=== PATIENT | female | born 1965 | race Caucasian/White ===

== ENCOUNTER → 2016-08-29 | Outpatient (CLI) | payer OTHER | LOC: WHI 15:39 | PROVIDERS: ATTEND Family Medicine | DX: Z12.31 Encounter for screening mammogram for malignant neoplasm of breast (principal); Z98.82 Breast implant status | CPT/HCPCS: 77067; G0202 ==

== ENCOUNTER → 2017-11-25 | Outpatient (CLI) | payer OTHER ==
--- NOTE | 2017-11-25 16:10 | WOMENS IMAGING REPORT ---
EXAM DESCRIPTION: BILAT SCREENING MAMMO W/CAD COMPLETED DATE/TIME: 11/25/2017 3:50 pm REASON FOR STUDY: ROUTINE SCREENING;Z12.31 Z12.31 ENCNTR SCREEN MAMMOGRAM FOR MALIGNANT NEOPLASM OF ALFREDO COMPARISON: [id number] TECHNIQUE: Standard craniocaudal and mediolateral oblique views of each breast recorded using digita l acquisition. Additional "push-back" craniocaudal and mediolateral oblique images acquired. LIMITATIONS: None. FINDINGS: IMPLANTS: Bilateral subpectoral implants. Findings present which are benign by mammographic criteria. No suspicious masses, calcifications or architectural distortion. Read with the assistance of CAD. .[facility] - R2 Cenova Version 1.3 .[facility] - R2 Cenova Version 1.3 .[facility] - R2 Cenova Version 2.4 .[facility] - R2 Cenova Version 2.4 .[facility] - R2 [employer] Version 9.2 Benign mammographic findings may include one or more of the following: Smooth masses, popcorn/rim/co arse calcifications, asymmetries, post-procedure changes, and lesions with long-standing stability. IMPRESSION: BENIGN MAMMOGRAPHIC FINDINGS. BIRADS 2 BREAST DENSITY: b. There are scattered areas of fibroglandular density. BIRAD: 2 BENIGN FINDING(S) RECOMMENDATION: ROUTINE SCREENING COMMENT: The patient has been notified of the results by letter per SA requirements. Additional no tification policies are in place for contacting patient with suspicious or incomplete findings. Quality ID #[id number]: [employer] [place] [employer] recommends an annual screening mammogram for women aged 40 years or over. This facility utilizes a reminder system to ensure that all patients receive reminder letters, and/or direct phone calls for appointments. This includes reminders for routine scr eening mammograms, diagnostic mammograms, or other Breast Imaging Interventions when appropriate. Th is patient will be placed in the appropriate reminder system. [employer] [place] [employer] (ACR) has developed recommendations for screening MRI of the breast s in certain patient populations, to be used in conjunction with mammography. Breast MRI surveillanc e may be appropriate for women with more than 20% lifetime risk of developing breast cancer as deter mined by genetic testing, significant family history of the disease, or history of mantle radiation f or Hodgkins Disease. ACR Practice Guidelines 2008. TECHNICAL DOCUMENTATION: FINDING NUMBER: (1) ASSESSMENT: (1) JOB ID: [id number] [employer]- All Rights Reserved Reading location - IP/workstation name: [email or web address]
== END ==
LOC: WI 15:23
PROVIDERS: ATTEND Family Medicine
DX: Z12.31 Encounter for screening mammogram for malignant neoplasm of breast (principal)
CPT/HCPCS: 77067

== ENCOUNTER 2018-10-13 09:13 | Observation (INO) | payer OTHER ==
--- NOTE | 2018-10-13 10:07 | ER Document Report ---
ED Medical Screen (RME) - General Chief Complaint: Dizziness Stated Complaint: DIZZINESS Time Seen by Provider: 10/13/18 09:56 Primary Care Provider: ANABEL MONDRAGON MD [Primary Care Provider] - Follow up as needed Notes: Patient is a 53-year-old female that presents to the emergency department for chief complaint of near syncope, lightheadedness and nausea. Patient states that while she was at work this morning, she started feeling lightheaded, and had heaviness across her chest, with associated nausea but no vomiting. She states she was out of her Lexapro for approximately 2 weeks, but just restarted today, is not sure if that is part of it, she also reports that her father had an TN at the age of 40.. ROS: Other than noted above, the 12 point review of systems was reviewed with the patient and were negative, all pertinent findings are included in the HPI. PHYSICAL EXAMINATION: Vital signs reviewed. GENERAL: Well-appearing, well-nourished and in no acute distress. HEAD: Atraumatic, normocephalic. EYES: Pupils equal round extraocular movements intact, conjunctiva are normal. ENT: Nares patent NECK: Normal range of motion CV: Heart regular rate and rhythm LUNGS: No respiratory distress Musculoskeletal: Normal range of motion NEUROLOGICAL: Normal speech PSYCH: Normal mood, normal affect. MDM: Patient seen and examined for rapid initial assessment. Vital signs reviewed. A comprehensive ED assessment and evaluation of the patient, analysis of test results and completion of the medical decision making process will be conducted by additional ED providers. *Note is created using voice recognition software and may contain spelling, syntax or grammatical errors. TRAVEL OUTSIDE OF THE [place] IN LAST 30 DAYS: No - Related Data Allergies/Adverse Reactions: lisinopril Allergy (Verified 10/13/18 09:27) sulfamethoxazole [From Bactrim] Allergy (Verified 10/13/18 09:27) trimethoprim [From Bactrim] Allergy (Verified 10/13/18 09:27) Past Medical History - Social History Chew tobacco use (# tins/day): No Frequency of alcohol use: Social Drug Abuse: None - Past Medical History Cardiac Medical History: Reports: Hx Hypertension Renal/ Medical History: Denies: Hx Peritoneal Dialysis Physical Exam - Vital signs Vitals: Temp Pulse Resp BP Pulse Ox 98.0 F 83 16 133/71 H 100 10/13/18 09:28 10/13/18 09:28 10/13/18 09:28 10/13/18 09:28 10/13/18 09:28 Course - Vital Signs Vital signs: Temp Pulse Resp BP Pulse Ox 98.0 F 83 16 133/71 H 100 10/13/18 09:28 10/13/18 09:59 10/13/18 09:59 10/13/18 09:59 10/13/18 09:59 Doctor's Discharge - Discharge Referrals: ANABEL MONDRAGON MD [Primary Care Provider] - Follow up as needed
[2018-10-13] MEDS ORDERED: ONDANSETRON HCL INJ/PF 4 MG/2 ML SDV IV ONE (10:08)
[2018-10-13 10:41] LABS: ABSOLUTE LYMPHOCYTES (AUTO) 1.3 10^3/uL (0.5-4.7); ABSOLUTE MONOCYTES (AUTO) 0.5 10^3/uL (0.1-1.4); ABSOLUTE NEUT (AUTO) 9.1 10^3/uL (1.7-8.2); BASOPHILS % (AUTO) 0.2 % (0-2); EOSINOPHILS % (AUTO) 0.3 % (0-6); HEMATOCRIT 39.7 % (36.0-47.0); HEMOGLOBIN 13.7 g/dL (12.0-15.5); LYMPHOCYTES % (AUTO) 11.6 % (13-45); MEAN CORPUSCULAR HEMOGLOBIN 31.5 pg (27.0-33.4); MEAN CORPUSCULAR HGB CONC 34.4 g/dL (32.0-36.0); MEAN CORPUSCULAR VOLUME 91 fl (80-97); MONOCYTES % (AUTO) 4.7 % (3-13); PLATELET COUNT 258 10^3/uL (150-450); RED BLOOD COUNT 4.34 10^6/uL (3.72-5.28); RED CELL DISTRIBUTION WIDTH 13.9 % (11.5-14.0); SEGMENTED NEUTROPHILS % (AUTO) 83.2 % (42-78); TOTAL CELLS COUNTED % (AUTO) 100 %; WHITE BLOOD COUNT 10.9 10^3/uL (4.0-10.5)
--- NOTE | 2018-10-13 10:49 | RADIOLOGY REPORT (SQ) ---
EXAM DESCRIPTION: CHEST SINGLE VIEW COMPLETED DATE/TIME: 10/13/2018 10:45 am REASON FOR STUDY: chest pain, near syncope COMPARISON: None. EXAM PARAMETERS: NUMBER OF VIEWS: One view. TECHNIQUE: Single frontal radiographic view of the chest acquired. RADIATION DOSE: NA LIMITATIONS: None. FINDINGS: LUNGS AND PLEURA: No opacities, masses or pneumothorax. No pleural effusion. MEDIASTINUM AND HILAR STRUCTURES: No masses. Contour normal. HEART AND VASCULAR STRUCTURES: Heart normal in size. Normal vasculature. BONES: No acute findings. HARDWARE: None in the chest. OTHER: No other significant finding. IMPRESSION: NO ACUTE RADIOGRAPHIC FINDING IN THE CHEST. TECHNICAL DOCUMENTATION: JOB ID: [id number] [employer]- All Rights Reserved Reading location - IP/workstation name: [email or web address]
[2018-10-13 10:59] LABS: ALANINE AMINOTRANSFERASE 16 U/L (9-52); ALBUMIN 4.2 g/dL (3.5-5.0); ALKALINE PHOSPHATASE 58 U/L (38-126); ANION GAP 12 (5-19); ASPARTATE AMINO TRANSFERASE 19 U/L (14-36); BILIRUBIN,DIRECT 0.2 mg/dL (0.0-0.4); BILIRUBIN,TOTAL 0.6 mg/dL (0.2-1.3); BLOOD UREA NITROGEN 16 mg/dL (7-20); CALCIUM 10.1 mg/dL (8.4-10.2); CARBON DIOXIDE 27 mmol/L (22-30); CHLORIDE 99 mmol/L (98-107); GLUCOSE 86 mg/dL (75-110); POTASSIUM 3.8 mmol/L (3.6-5.0); SODIUM 137.6 mmol/L (137-145); TOTAL PROTEIN 7.1 g/dL (6.3-8.2)
--- NOTE | 2018-10-13 11:12 | ER Document Report ---
ED General - General Chief Complaint: Dizziness Stated Complaint: DIZZINESS Time Seen by Provider: 10/13/18 09:56 Primary Care Provider: ANABEL MONDRAGON MD [Primary Care Provider] - Follow up as needed Notes: Patient says that she began experiencing some nausea yesterday and a "bubble" or "air or gas" in the anterior substernal chest region between the breasts. The symptom comes and goes. Prior to the onset of her symptoms, she had seen her primary care provider for a routine visit at about 7:00 AM yesterday. This morning, on her way to work, she went back to his office to get some blood work done, but did not see the doctor there. 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 While there, she began to feel hot and sweaty and felt as if she was going to pass out and laid down on the floor. She never actually completely lost consciousness. Did not have any vomiting. Did not feel any shortness of breath. Has not been sick recently. No fevers. Has a slight headache. Patient has no history of any heart condition. Does have hypertension. Patient has a history of anxiety and has been out of her Lexapro for a couple of weeks, but just resumed taking it. TRAVEL OUTSIDE OF THE [place] IN LAST 30 DAYS: No - Related Data Allergies/Adverse Reactions: lisinopril Allergy (Verified 10/13/18 09:27) sulfamethoxazole [From Bactrim] Allergy (Verified 10/13/18 09:27) trimethoprim [From Bactrim] Allergy (Verified 10/13/18 09:27) Past Medical History - Social History Smoking Status: Never Smoker Chew tobacco use (# tins/day): No Frequency of alcohol use: Social Drug Abuse: None Family History: Reviewed & Not Pertinent, CAD - Father had a heart attack at the age of 40. Patient has suicidal ideation: No Patient has homicidal ideation: No - Past Medical History Cardiac Medical History: Reports: Hx Hypertension Endocrine Medical History: Denies: Hx Diabetes Mellitus Type 1, Hx Diabetes Mellitus Type 2 GI Medical History: Reports: Hx Gastroesophageal Reflux Disease Psychiatric Medical History: Reports: Hx Anxiety Past Surgical History: Reports: Other - Augmentation mammoplasty Review of Systems - Review of Systems Notes: REVIEW OF SYSTEMS: CONSTITUTIONAL : Denies fever. EENT: Denies eye, ear, nose or mouth or throat pain or other symptoms. CARDIOVASCULAR: See HPI. Denies actual chest pain. Denies any swelling or pain of either lower leg. RESPIRATORY: Denies cough, chest congestion, or shortness of breath. No chest wall or sternal tenderness to press. GASTROINTESTINAL: Nausea. See HPI. GENITOURINARY: Denies difficulty or painful urinating, urinary frequency, blood in urine. MUSCULOSKELETAL: Denies back or neck pain. Denies joint pain or swelling. Negative Homans bilaterally. SKIN: Denies rash or skin lesions. NEUROLOGICAL: Sounds like patient had a near syncopal episode this morning. See HPI. Denies LOC or altered mental status. Denies headache. Denies sensory loss or motor deficits. ALL OTHER SYSTEMS REVIEWED AND NEGATIVE. Physical Exam - Vital signs Vitals: Temp Pulse Resp BP Pulse Ox 98.0 F 83 16 133/71 H 100 10/13/18 09:28 10/13/18 09:28 10/13/18 09:28 10/13/18 09:28 10/13/18 09:28 - Notes Notes: PHYSICAL EXAMINATION: GENERAL: Well-appearing, in no acute distress. Anxious. HEAD: Atraumatic, normocephalic. EYES: Pupils equal round and reactive to light, extraocular movements intact. ENT: oropharynx clear without exudates. Moist mucous membranes. NECK: Normal range of motion, supple. No carotid bruits heard. LUNGS: Breath sounds clear and equal bilaterally. No chest wall tenderness. HEART: Regular rate and rhythm without murmurs. ABDOMEN: Soft, nontender. No guarding or rebound. No masses. BACK: No tenderness throughout entire back. EXTREMITIES: Normal range of motion without pain. Negative Homans bilaterally. NEUROLOGICAL: Normal speech, normal gait. Normal sensory, motor, and reflex exams. Awake, alert, and oriented x3. Cranial nerves normal. PSYCH: Normal mood, normal affect. SKIN: Warm, dry, no rashes. Course - Re-evaluation Re-evalutation: 10/13/18 12:12 Patient's complete workup is negative. However, I am concerned about her near syncopal episode. Also concerned as to the source for her chest discomfort. Feel like the patient should have at least a 24-hour monitoring and further evaluation. - Vital Signs Vital signs: Temp Pulse Resp BP Pulse Ox 98.0 F 83 16 133/71 H 100 10/13/18 09:28 10/13/18 09:59 10/13/18 09:59 10/13/18 09:59 10/13/18 10:35 - Laboratory Result Diagrams: 10/13/18 10:15 10/13/18 10:15 Laboratory results interpreted by me: 10/13/18 10:15 WBC 10.9 H Seg Neutrophils % 83.2 H Lymphocytes % 11.6 L Absolute Neutrophils 9.1 H - Diagnostic Test Radiology results interpreted by me: 10/13/18 11:30 Chest x-ray is normal. - EKG Interpretation by Fl EKG shows normal: Sinus rhythm Rate: Normal Rhythm: NSR Additional EKG results interpreted by me: 10/13/18 11:31 EKG is completely normal. Discharge - Discharge Clinical Impression: Chest pain, Near syncope Condition: Stable Disposition: ADMITTED OBSERVATION Admitting Provider: Hospitalist Unit Admitted: Telemetry Referrals: ANABEL MONDRAGON MD [Primary Care Provider] - Follow up as needed
[2018-10-13] MEDS ORDERED: ONDANSETRON HCL INJ/PF 4 MG/2 ML SDV IV PRN (13:55)
[2018-10-13] MEDS ORDERED: MAG HYDROX/AL HYDROX/SIMETH SUSP 30 ML UDCUP PO PRN (13:55)
[2018-10-13] MEDS ORDERED: ACETAMINOPHEN 325 MG TABLET PO PRN (13:55)
[2018-10-13] MEDS ORDERED: LIDOCAINE 2% VISCOUS SOLN 20 ML UDCUP PO ONE (14:30)
[2018-10-13] MEDS ORDERED: MAG HYDROX/AL HYDROX/SIMETH SUSP 30 ML UDCUP PO ONE (14:30)
[2018-10-13] MEDS ORDERED: METOCLOPRAMIDE HCL ORAL SOLN 10 MG/10 ML UDCUP PO ONE (14:30)
[2018-10-13] MEDS: HEPARIN SOD (PORCINE) 5,000 UNIT/ML 1 ML SYRINGE SUBCUT SCH ×2 (14:58→22:02)
--- NOTE | 2018-10-13 18:28 | PDOC H&P ---
History of Present Illness Admission Date/PCP: 10/13/18 12:52 ANABEL MONDRAGON MD Patient complains of: Chest pain History of Present Illness: RAYMOND NGO is a 53 year old female with a past medical history significant for hypertension, GERD, depression/anxiety, and overactive bladder who presented to the emergency department today with a complaint of 1 day of atypical chest pain, described as a substernal "pressure bubble," that is nonradiating and without alleviating or exacerbating factors. In fact, the patient's chest pain did not worsen yesterday while at the gym (reportedly ran 2 miles on treadmill). However, today while on the commode attempting to have a BM, the patient became diaphoretic and experienced near syncope upon standing. Evaluation in the emergency department was unremarkable with normal vital signs, reassuring EKG, benign CXR, normal troponin and laboratory evaluation. Patient's HEART score is 2 (age, PMH of HTN, and Family Hx). She was educated that she could be safely discharged to home following her second troponin with outpatient follow up. The patient expressed severe reservations with this plan and insisted on observation overnight with stress testing in the morning. She is referred to the hospitalist service for admission and chest pain rule out. Past Medical History Cardiac Medical History: Reports: Hypertension Denies: Coronary Artery Disease, Myocardial Infarction, Hyperlipidema Pulmonary Medical History: Reports: None EENT Medical History: Reports: None Neurological Medical History: Reports: None Endocrine Medical History: Reports: None Renal/ Medical History: Reports: None Malignancy Medical History: Reports: None GI Medical History: Reports: Gastroesophageal Reflux Disease Musculoskeltal Medical History: Reports: None Skin Medical History: Reports: None Psychiatric Medical History: Reports: Depression, General Anxiety Disorder Traumatic Medical History: Reports: None Hematology: Reports: None Infectious Medical History: Reports: None Past Surgical History Past Surgical History: Reports: Other - Augmentation mammoplasty Social History Information Source: Patient Smoking Status: Current Some Day Smoker Frequency of Alcohol Use: Social Hx Recreational Drug Use: No Drugs: None Hx Prescription Drug Abuse: No - Advance Directive Resuscitation Status: Full Code Family History Family History: Reviewed & Not Pertinent, CAD - Father had a heart attack at the age of 40., DM Parental Family History Reviewed: Yes Children Family History Reviewed: Yes Sibling(s) Family History Reviewed.: Yes Medication/Allergy Home Medications: Escitalopram Oxalate [Lexapro] 20 mg PO DAILY 10/13/18 Losartan/Hydrochlorothiazide [Hyzaar 50-12.5 Tablet] 1 tab PO DAILY 10/13/18 Omeprazole 40 mg PO DAILY 10/13/18 Tolterodine Tartrate [Detrol LA] 4 mg PO DAILY 10/13/18 Allergies/Adverse Reactions: lisinopril Allergy (Verified 10/13/18 09:27) sulfamethoxazole [From Bactrim] Allergy (Verified 10/13/18 09:27) trimethoprim [From Bactrim] Allergy (Verified 10/13/18 09:27) Review of Systems Constitutional: ABSENT: chills, fever(s), headache(s), weight gain, weight loss Eyes: ABSENT: visual disturbances Ears: ABSENT: hearing changes Cardiovascular: PRESENT: chest pain. ABSENT: dyspnea on exertion, edema, orthropnea, palpitations Respiratory: ABSENT: cough, hemoptysis Gastrointestinal: ABSENT: abdominal pain, constipation, diarrhea, hematemesis, hematochezia, nausea, vomiting Genitourinary: ABSENT: dysuria, hematuria Musculoskeletal: ABSENT: joint swelling Integumentary: ABSENT: rash, wounds Neurological: ABSENT: abnormal gait, abnormal speech, confusion, dizziness, focal weakness, syncope Psychiatric: ABSENT: anxiety, depression, homidical ideation, suicidal ideation Endocrine: ABSENT: cold intolerance, heat intolerance, polydipsia, polyuria Hematologic/Lymphatic: ABSENT: easy bleeding, easy bruising Physical Exam Vital Signs: Temp Pulse Resp BP Pulse Ox 98.3 F 80 15 114/70 99 10/13/18 16:47 10/13/18 16:47 10/13/18 16:47 10/13/18 16:47 10/13/18 16:47 Intake & Output 10/12/18 10/13/18 10/14/18 06:59 06:59 06:59 Weight 63 kg General appearance: PRESENT: no acute distress, well-developed, well-nourished Head exam: PRESENT: atraumatic, normocephalic Eye exam: PRESENT: conjunctiva pink, EOMI, PERRLA. ABSENT: scleral icterus Ear exam: PRESENT: normal external ear exam Mouth exam: PRESENT: moist, tongue midline Neck exam: ABSENT: carotid bruit, JVD, lymphadenopathy, thyromegaly Respiratory exam: PRESENT: clear to auscultation fuentes. ABSENT: rales, rhonchi, wheezes Cardiovascular exam: PRESENT: RRR. ABSENT: diastolic murmur, rubs, systolic murmur Pulses: PRESENT: normal dorsalis pedis pul Vascular exam: PRESENT: normal capillary refill GI/Abdominal exam: PRESENT: normal bowel sounds, soft. ABSENT: distended, guarding, mass, organolmegaly, rebound, tenderness Rectal exam: PRESENT: deferred Extremities exam: PRESENT: full ROM. ABSENT: calf tenderness, clubbing, pedal edema Neurological exam: PRESENT: alert, awake, oriented to person, oriented to place, oriented to time, oriented to situation, CN II-XII grossly intact. ABSENT: motor sensory deficit Psychiatric exam: PRESENT: appropriate affect, normal mood. ABSENT: homicidal ideation, suicidal ideation Skin exam: PRESENT: dry, intact, warm. ABSENT: cyanosis, rash Results Laboratory Results: 10/13/18 10:15 10/13/18 10:15 10/13/18 10/13/18 10:15 10:15 WBC 10.9 H RBC 4.34 Hgb 13.7 Hct 39.7 MCV 91 MCH 31.5 MCHC 34.4 RDW 13.9 Plt Count 258 Seg Neutrophils % 83.2 H Lymphocytes % 11.6 L Monocytes % 4.7 Eosinophils % 0.3 Basophils % 0.2 Absolute Neutrophils 9.1 H Absolute Lymphocytes 1.3 Absolute Monocytes 0.5 Absolute Eosinophils 0.0 Absolute Basophils 0.0 Sodium 137.6 Potassium 3.8 Chloride 99 Carbon Dioxide 27 Anion Gap 12 BUN 16 Creatinine 0.68 Est GFR ( Amer) > 60 Est GFR (Non-Af Amer) > 60 Glucose 86 Calcium 10.1 Total Bilirubin 0.6 AST 19 ALT 16 Alkaline Phosphatase 58 Total Protein 7.1 Albumin 4.2 10/13/18 10/13/18 10:15 15:15 Troponin I < 0.012 < 0.012 Impressions: Chest X-Ray 10/13/18 10:07 IMPRESSION: NO ACUTE RADIOGRAPHIC FINDING IN THE CHEST. Assessment and Plan - Diagnosis (1) Atypical chest pain Is this a current diagnosis for this admission?: Yes Plan: Chest x-ray is benign. EKG demonstrates NSR without ST segment changes. Initial troponin is negative. The patient is admitted to the medical floor and continuous cardiac telemetry. We will continue to monitor cardiac enzymes. Treadmill stress test in the morning. Trial of GI cocktail. Cardiac diet. Daily aspirin and statin therapy. A1c, lipid panel, TSH with a.m. labs. (2) HTN (hypertension) Is this a current diagnosis for this admission?: Yes Plan: Continue home dose losartan/HCTZ Cardiac diet. (3) GERD (gastroesophageal reflux disease) Is this a current diagnosis for this admission?: Yes Plan: Continue PPI. (4) Anxiety Is this a current diagnosis for this admission?: Yes Plan: Continue home dose Lexapro. (5) Near syncope Is this a current diagnosis for this admission?: Yes Plan: Likely vasovagal as symptoms occurred while on the commode attempting to have a BM (patient reports that she has significant difficulty with constipation). Chest x-ray and EKG are benign. Chemistry is entirely within normal limits. Troponins are negative x2. Fall precautions. Orthostatic blood pressures. - Time Time Spent with patient: 35 or more minutes Smoking Cessation Education: 3 to 10 minutes Medications reviewed and adjusted accordingly: Yes Anticipated discharge: Home Within: within 24 hours
--- NOTE | 2018-10-13 21:52 | EKG REPORT ---
SEVERITY:- NORMAL ECG - SINUS RHYTHM : Confirmed by: Suzette Andrew MD 13-Oct-2018 21:52:29
[2018-10-13] MEDS: FAMOTIDINE 20 MG TABLET PO SCH (21:55)
[2018-10-13] MEDS ORDERED: ATORVASTATIN CALCIUM 10 MG TABLET PO SCH (22:00)
[2018-10-13] MEDS ORDERED: ESCITALOPRAM OXALATE 10 MG TABLET PO SCH (22:00)
[2018-10-14] MEDS: HEPARIN SOD (PORCINE) 5,000 UNIT/ML 1 ML SYRINGE SUBCUT SCH (05:59)
[2018-10-14] MEDS ORDERED: ESCITALOPRAM OXALATE 10 MG TABLET PO SCH (08:00)
[2018-10-14 08:10] LABS: CHOLESTEROL 132.46 mg/dL (0-200); TRIGLYCERIDES 76 mg/dL (<150)
[2018-10-14 08:21] LABS: DIRECT LDL 68 mg/dL (<100)
[2018-10-14] MEDS ORDERED: (PENDING PHARMACY ID) (Losartan/Hydrochlorothiazide [Hyzaar 50-12.5 Tablet] 1 TAB) PO SCH (10:00)
[2018-10-14] MEDS ORDERED: HYDROCHLOROTHIAZIDE 12.5 MG TABLET PO SCH (10:00)
[2018-10-14] MEDS ORDERED: LOSARTAN POTASSIUM 50 MG TABLET PO SCH (10:00)
[2018-10-14] MEDS ORDERED: ASPIRIN 81 MG TABLET, ENT COATED PO SCH (10:00)
[2018-10-14] MEDS: FAMOTIDINE 20 MG TABLET PO SCH (11:24)
[2018-10-14 12:43] VITALS: BP 108/74
--- NOTE | 2018-10-17 17:01 | DRAGON STRESS TEST REPORT ---
Exercise EKG treadmill stress test. Data procedure: 10/14/2018. Ordering Provider: Ms. Maria R Maguire NP. The patient Status: In Patient. Indication: Chest pain/discomfort . Coronary risk factors:. Age, hyperlipidemia, and family history of coronary artery disease. Significant physical findings prior to stress testing show a blood pressure of 129/97 and a heart rate of 81 beat per minute. Auscultation of the heart shows normal S1 and S2.NoS3 or S4 gallops. Systolic murmur in the left sternal border and apex. Lungs are clear to auscultation and percussion. Resting 12-lead EKG: Sinus Rhythm. Within Normal Limits.. Procedure: The patient was excised on a standard Skip protocol. . The patient walked a total of 10 minutes and 45 seconds on this protocol and reached a peak heart rate of 171 beats per minute, which is 101% of maximum predicted heart rate for age. This is at a workload of METS. The test was stopped because of achievement of more than 100% of maximum predicted heart rate for age.. The patient described no symptoms of chest pain/discomfort. Exercise EKG's show:. There is no EKG evidence of exercise-induced ischemia. Arrhythmias seen:None. The blood pressure response was . At peak exercise the blood pressure was 184/92 millimeters of Hg. The double product was 23.1 K. Summary of findings and interpretation: 1. No chest pain or chest discomfort symptoms reproduced. 2. No EKG evidence of ischemia in the form of ST segment depression. 3. Normal blood pressure response. 4. No arrhythmias seen. 5. Good exercise tolerance, good aerobic capacity. Diagnostic treadmill stress test negative for ischemia by EKG criteria. Recommendations: Aggressive risk factor modification, and treatment of underlying co-morbidities. MTDD
--- NOTE | 2018-10-18 20:02 | PDOC DISCHARGE SUMMARY ---
General - Admit/Disc Date/PCP Admission Date/Primary Care Provider: 10/13/18 12:52 ANABEL MONDRAGON MD Discharge Date: 10/14/18 - Discharge Diagnosis (1) Atypical chest pain Is this a current diagnosis for this admission?: Yes Summary: Chest x-ray is benign. EKG demonstrates NSR without ST segment changes. Serial troponins are negative. TSH, lipid panel, and A1C were acceptable. Treadmill stress test was negative. The patient was admitted to the medical floor and continuous cardiac telemetry and cardiac work up was completed as above. The patient had no further episodes of chest discomfort. Likely was GI in origin related to her GERD/Reflux and a vasovagal event while s training for a constipated bm. Patient is discharged to home in stable condition. She is advised to continue a low fat diet and to exercise regularly. STOP smoking. Follow up with PCP within 1 week; recommend discussing uncontrolled reflux symptoms. Return to the emergency department as needed for concerning symptoms. (2) HTN (hypertension) Is this a current diagnosis for this admission?: Yes Summary: Well controlled on home dose losartan/hctz (3) GERD (gastroesophageal reflux disease) Is this a current diagnosis for this admission?: Yes Summary: Continue omperazole Recommend patient discuss uncontrolled GERD symptoms with PCP; patient may benefit from GI referral/EGD. (4) Anxiety Is this a current diagnosis for this admission?: Yes Summary: Continue home dose Lexapro. (5) Near syncope Is this a current diagnosis for this admission?: Yes Summary: Likely vasovagal as symptoms occurred while on the commode attempting to have a BM (patient reports that she has significant difficulty with constipation). Chest x-ray and EKG are benign. Chemistry is entirely within normal limits. Troponins are negative x3 Orthostatic blood pressures are normal. Recommend improved management of chronic constipation. (6) Constipation Is this a current diagnosis for this admission?: Yes Summary: Chronic. Recommend improved management; OTC Colace and Miralax daily. Increase water and fiber in diet. Consider outpatient GI consultation. - Additional Information Resuscitation Status: Full Code Discharge Diet: Regular Discharge Activity: Activity As Tolerated, Balance Activity w/Rest, Walk Frequently Home Medications: Escitalopram Oxalate [Lexapro] 20 mg PO DAILY 10/13/18 Losartan/Hydrochlorothiazide [Hyzaar 50-12.5 Tablet] 1 tab PO DAILY 10/13/18 Omeprazole 40 mg PO DAILY 10/13/18 Tolterodine Tartrate [Detrol LA] 4 mg PO DAILY 10/13/18 Acetaminophen [Tylenol 325 mg Tablet] 650 mg PO Q4HP PRN tablet 10/14/18 History of Present Illness History of Present Illness: RAYMOND NGO is a 53 year old female with a past medical history significant for hypertension, GERD, depression/anxiety, and overactive bladder who presented to the emergency department today with a complaint of 1 day of atypical chest pain, described as a substernal "pressure bubble," that is nonradiating and without alleviating or exacerbating factors. In fact, the patient's chest pain did not worsen yesterday while at the gym (reportedly ran 2 miles on treadmill). However, today while on the commode attempting to have a BM, the patient became diaphoretic and experienced near syncope upon standing. Evaluation in the emergency department was unremarkable with normal vital signs, reassuring EKG, benign CXR, normal troponin and laboratory evaluation. Patient's HEART score is 2 (age, PMH of HTN, and Family Hx). She was educated that she could be safely discharged to home following her second troponin with outpatient follow up. The patient expressed severe reservations with this plan and insisted on observation overnight with stress testing in the morning. She is referred to the hospitalist service for admission and chest pain rule out. Physical Exam Vital Signs: Temp Pulse Resp BP Pulse Ox 97.6 F 80 16 108/74 100 10/14/18 12:03 10/14/18 12:03 10/14/18 12:03 10/14/18 12:10/14/18 12:03 General appearance: PRESENT: no acute distress, well-developed, well-nourished Head exam: PRESENT: atraumatic, normocephalic Eye exam: PRESENT: conjunctiva pink, EOMI, PERRLA. ABSENT: scleral icterus Ear exam: PRESENT: normal external ear exam Mouth exam: PRESENT: moist, tongue midline Neck exam: ABSENT: carotid bruit, JVD, lymphadenopathy, thyromegaly Respiratory exam: PRESENT: clear to auscultation fuentes. ABSENT: rales, rhonchi, wheezes Cardiovascular exam: PRESENT: RRR. ABSENT: diastolic murmur, rubs, systolic murmur Pulses: PRESENT: normal dorsalis pedis pul Vascular exam: PRESENT: normal capillary refill GI/Abdominal exam: PRESENT: normal bowel sounds, soft. ABSENT: distended, guarding, mass, organolmegaly, rebound, tenderness Rectal exam: PRESENT: deferred Extremities exam: PRESENT: full ROM. ABSENT: calf tenderness, clubbing, pedal edema Neurological exam: PRESENT: alert, awake, oriented to person, oriented to place, oriented to time, oriented to situation, CN II-XII grossly intact. ABSENT: motor sensory deficit Psychiatric exam: PRESENT: appropriate affect, normal mood. ABSENT: homicidal ideation, suicidal ideation Skin exam: PRESENT: dry, intact, warm. ABSENT: cyanosis, rash Results Laboratory Results: 10/13/18 10:15 10/13/18 10:15 10/13/18 10/13/18 10/13/18 10:15 15:15 20:45 Troponin I < 0.012 < 0.012 < 0.012 Impressions: Chest X-Ray 10/13/18 10:07 IMPRESSION: NO ACUTE RADIOGRAPHIC FINDING IN THE CHEST. Qualifiers - * PATIENT BEING DISCHARGED WITH ANY OF THE FOLLOWING DIAGNOSIS: No Plan Discharge Plan: Discharge to home with self care. Follow up with primary care provider within 1 week. STOP smoking. Continue present low fat diet and physical exercise program. Return to the emergency department as needed for concerning symptoms. Time Spent: Less than 30 Minutes
== END 2018-10-14 12:45 | disposition home or self-care (01) ==
LOC: ER 09:13 → EH 12:52 → 5 16:30
PROVIDERS: ADMIT Internal Medicine; ATTEND Internal Medicine
PROC: HZ31ZZZ Individual Counseling for Substance Abuse Treatment, Behavioral (ICD-10-PCS; principal; 2018-10-13)
DX: R07.89 Other chest pain (principal); I10 Essential (primary) hypertension; K21.9 Gastro-esophageal reflux disease without esophagitis; F41.1 Generalized anxiety disorder; R55 Syncope and collapse; K59.09 Other constipation; N32.81 Overactive bladder; R61 Generalized hyperhidrosis; F32.9 Major depressive disorder, single episode, unspecified; F17.200 Nicotine dependence, unspecified, uncomplicated; R11.0 Nausea; R51 Headache; Z79.899 Other long term (current) drug therapy; Z98.82 Breast implant status; Z82.49 Family history of ischemic heart disease and other diseases of the circulatory system
CPT/HCPCS: 93005; 99285; 96374; 36415 ×2; 84443; 85025; 80053; 84484; 83036; 80061; 93017; 71045; 93010; 99406; G0378 ×3; J1644; J3490 ×2; J2405

== ENCOUNTER → 2018-12-21 | Outpatient (CLI) | payer OTHER ==
--- NOTE | 2018-12-21 16:13 | WOMENS IMAGING REPORT ---
EXAM DESCRIPTION: BILAT SCREENING MAMMO W/CAD COMPLETED DATE/TIME: 12/21/2018 3:39 pm REASON FOR STUDY: Z12.31 ROUTINE BILATERAL SCREENING Z12.31 ENCNTR SCREEN MAMMOGRAM FOR MALIGNANT N EOPLASM OF ALFREDO COMPARISON: [id number] EXAM PARAMETERS: Standard craniocaudal and mediolateral oblique views of each breast recorded using digital acquisition. Additional "push-back" craniocaudal and mediolateral oblique images acquired. Read with the assistance of CAD. .[facility] - R2 [employer] Operator Version 9.2 LIMITATIONS: None. FINDINGS: IMPLANTS: Bilateral subpectoral implants. Findings present which are benign by mammographic criteria. No suspicious masses, calcifications or architectural distortion. Benign mammographic findings may include one or more of the following: Smooth masses, popcorn/rim/co arse calcifications, asymmetries, post-procedure changes, and lesions with long-standing stability. IMPRESSION: ASSESSMENT: BENIGN MAMMOGRAPHIC FINDINGS. BIRADS 2 BREAST DENSITY: c. The breasts are heterogeneously dense, which may obscure small masses. BIRAD: 2 BENIGN FINDING(S) RECOMMENDATION: ROUTINE SCREENING COMMENT: The patient has been notified of the results by letter per SA requirements. Additional no tification policies are in place for contacting patient with suspicious or incomplete findings. Quality ID #[id number]: The [employer] recommends an annual screening mammogram for women aged 40 years or over. This facility utilizes a reminder system to ensure that all patients receive reminder letters, and/or direct phone calls for appointments. This includes reminders for routine scr eening mammograms, diagnostic mammograms, or other Breast Imaging Interventions when appropriate. Th is patient will be placed in the appropriate reminder system. TECHNICAL DOCUMENTATION: FINDING NUMBER: (1) ASSESSMENT: (1) JOB ID: [id number] [employer]- All Rights Reserved Reading location - IP/workstation name: [email or web address]
== END ==
LOC: WI 15:21
PROVIDERS: ATTEND Family Medicine
DX: Z12.31 Encounter for screening mammogram for malignant neoplasm of breast (principal)
CPT/HCPCS: 77067

== ENCOUNTER → 2020-02-04 | Outpatient (CLI) | payer OTHER ==
--- NOTE | 2020-02-04 16:36 | WOMENS IMAGING REPORT ---
EXAM DESCRIPTION: 3D SCREENING MAMMO BILAT IMAGES COMPLETED DATE/TIME: 02/04/2020 7:38 am REASON FOR STUDY: Z12.31 ENCNTR SCREEN MAMMOGRAM FOR MALIGNANT NEOPLASM OF BREAST Z12.31 ENCNTR SCR EEN MAMMOGRAM FOR MALIGNANT NEOPLASM OF ALFREDO COMPARISON: 2016 2018 EXAM PARAMETERS: Standard craniocaudal and mediolateral oblique views of each breast recorded using digital acquisition and breast tomosynthesis. Additional "push-back craniocaudal and mediolateral ob lique images acquired. Read with the assistance of CAD. .[facility] - R2 [employer] Installer Version 9.2 LIMITATIONS: None. FINDINGS: IMPLANTS: Bilateral subpectoral implants. Findings present which are benign by mammographic criteria. No suspicious masses, calcifications or a rchitectural distortion. Benign mammographic findings may include one or more of the following: Smooth masses, popcorn/rim/co arse calcifications, asymmetries, post-procedure changes, and lesions with long-standing stability. IMPRESSION: BENIGN MAMMOGRAPHIC FINDINGS. BIRADS 2 BREAST DENSITY: c. The breasts are heterogeneously dense, which may obscure small masses. BIRAD: ASSESSMENT: 2 BENIGN FINDING(S) RECOMMENDATION: ROUTINE SCREENING COMMENT: The patient has been notified of the results by letter per SA requirements. Additional no tification policies are in place for contacting patient with suspicious or incomplete findings. Quality ID #[id number]: The [employer] recommends an annual screening mammogram for women aged 40 years or over. This facility utilizes a reminder system to ensure that all patients receive reminder letters, and/or direct phone calls for appointments. This includes reminders for routine scr eening mammograms, diagnostic mammograms, or other Breast Imaging Interventions when appropriate. Th is patient will be placed in the appropriate reminder system. TECHNICAL DOCUMENTATION: FINDING NUMBER: (1) ASSESSMENT: (1) JOB ID: [id number] [employer]- All Rights Reserved Reading location - IP/workstation name: [email or web address]
== END ==
LOC: WI 06:56
PROVIDERS: ATTEND Family Medicine
DX: Z12.31 Encounter for screening mammogram for malignant neoplasm of breast (principal); Z98.82 Breast implant status
CPT/HCPCS: 77063; 77067